=== PATIENT | female | born 1975 | race Caucasian/White ===

== ENCOUNTER 2017-09-03 13:20 | Observation (INO) | payer OTHER ==
[2017-09-03] MEDS: LACTATED RINGER'S 1,000 ML IV (14:54)
[2017-09-03] MEDS ORDERED: CARBOPROST 250 MCG INJ IM (15:00)
[2017-09-03] MEDS ORDERED: OXYTOCIN 30 UNITS/LR 500 ML IV ×3 (15:00)
[2017-09-03] MEDS ORDERED: IBUPROFEN 600 MG TAB PO (15:00)
[2017-09-03] MEDS ORDERED: MISOPROSTOL 200 MCG TAB PR (15:00)
[2017-09-03] MEDS ORDERED: LIDOCAINE 1% (MPF) 30 ML INJ INJ (15:00)
[2017-09-03] MEDS ORDERED: METHYLERGONOVINE 0.2 MG INJ IM (15:00)
[2017-09-03] MEDS ORDERED: BUTORPHANOL 2 MG INJ IV (15:00)
== END 2017-09-03 17:24 | disposition home or self-care (01) ==
LOC: L-D 13:20
DX: O62.9 Abnormality of forces of labor, unspecified (principal); O09.523 Supervision of elderly multigravida, third trimester; Z3A.37 37 weeks gestation of pregnancy
CPT/HCPCS: 76815; 76818; 99217